=== PATIENT | female | born 1990 | race Caucasian/White ===

== ENCOUNTER 2024-02-12 16:41 | Inpatient (IN) ==
[2024-02-12] MEDS: METOPROLOL TARTRATE 1 MG/ML VIAL IV STA (17:19)
--- NOTE | 2024-02-12 17:21 | Emergency Department Note ---
Impression & Plan Atrial fibrillation with rapid ventricular response, CHF (congestive heart failure), Hyperthyroidism ED Provider Note NAME: SORAYA BERNSTEIN AGE: 33 SEX: Female INFORMANT: Patient and mother ED PROVIDER(S): Greg Lucio MD CHIEF COMPLAINT: A-fib and CHF PLAN: Disposition: Admitted Outpatient prescription management: none Referral: None MEDICAL DECISION MAKING: Patient presented because of direction from the primary clinic. They were concerned with new onset A-fib as well as CHF. Patient has a known history of hyperthyroidism but has not been treated. An IV was established. Patient was found to have A-fib with RVR at 131 bpm. She was given a dose of IV metoprolol 5 mg. Chest imaging, blood work, and urinalysis ordered. Patient has an elevated BNP. This is concerning for CHF in light of her physical findings. She was given the metoprolol and did well with this. Rate control was achieved. Patient was still in A-fib. She was given oral metoprolol. Given the CHF findings she was given IV Lasix and diuresis was started. Patient's history was concerning for the thyroid mass and she does have an undetectable TSH and high T4. Further management will be necessary. [facility] was evaluated in the ER and admitted for further management Care/management discussed with: disease case manager rn Level of care consideration(s): After review of the information above and other included data, I feel the patient requires escalation of care to admission Triage Nursing notes: reviewed and agree them. Vital Signs: reviewed and remarkable for hypertension and tachycardia Additional History obtained from: Patient's mother. She notes that she has chronic right lower leg edema from an old injury but the legs have become significantly more swollen in the recent weeks. Chronic Medical/Social Conditions affecting care: Hyperthyroidism Prior/ Outside/ External records reviewed: [facility]'s office note from today reviewed. She was evaluated for the symptoms noted in the HPI and they were concerned about abnormal labs with anemia, elevated BNP and elevated total bilirubin. Patient was referred to the emergency department for further workup and evaluation Differential Diagnosis: CHF, myocarditis, premature contractions, electrolyte abnormality, cardiac dysrhythmia, thyroid dysfunction, pulmonary embolism, infection, gastrointestinal, as well as other pathologies. Diagnostics, independently interpreted by me: ECG: Twelve-lead ECG reveals atrial fibrillation with rapid ventricular sponsor 131 bpm. Poor R wave progression anteriorly. No ST elevation or depression. Cardiac Monitoring: Cardiac monitoring ordered by me: The patient was placed on continuous cardiac monitoring and observed. It revealed a atrial fibrillation with rapid ventricular response at 115 bpm Medical decision rules: none Imaging studies: Chest x-ray reveals mild cardiomegaly and findings concerning for CHF. HPI: 33 year old Female arrives for evaluation of new onset atrial fibrillation and CHF. This started about a month ago and is noted with increased leg swelling. Patient also notes increased abdominal distention over the last few weeks with weight gain. The patient also notes the following associated symptoms, shortness of breath with exertion, palpitations. Patient has a known history of hypothyroidism. She was previously prescribed methimazole but notes adverse reaction to this and did not complete any additional therapy. The patient has been prescribed no new medications for relieving factors. Current pain is rated as 0/10. Patient states that she was referred to the emergency department due to concerns about new onset CHF and the fact that she was in new onset A-fib with rapid ventricular response. Pt denies LOC, headache, fevers, chills, diaphoresis, visual changes, neck pain, chest pain, nausea, vomiting, abdominal pain, back pain, melena, hematochezia, urinary symptoms, numbness, weakness, lymphadenopathy, rash, or other complaints. PAST MEDICAL HISTORY: See Below, hypothyroidism, PCOS PAST SURGICAL HISTORY: See Below, SOCIAL HISTORY: See Below, non-smoker HOME MEDICATIONS: See Below ALLERGIES: See Below VITALS: See Below PHYSICAL EXAMINATION: GENERAL: Awake, alert, mildly anxious-appearing, in no distress HENT: Normocephalic, atraumatic. Oropharynx unremarkable. EYES: Normal conjunctiva. Sclera non-icteric. NECK: Inspection normal. Non-tender. Supple. No nuchal rigidity. FROM. Large mass in the area of the thyroid palpable. RESPIRATORY: Clear to auscultation. No wheezes. No rales. Normal respiratory effort. CARDIAC: Tachycardic rate. Irregular rhythm. No murmurs. No rubs. Extremities warm and well perfused. Pulses equal. Moderate JVD. GI: Soft, mildly-distended. No tenderness to palpation. No rebound or guarding. No masses. RECTAL: Deferred. MUSCULOSKELETAL: Atraumatic. Chest examination reveals no tenderness. The back is symmetrical on inspection without obvious abnormality. There is no CVA tenderness to palpation. No joint edema. LOWER EXTREMITIES: Calves are equal size bilaterally and non-tender. 2-3+ edema. No discoloration. NEURO: Normal sensorium. No sensory or motor deficits noted. SKIN: No rash or jaundice noted. PROCEDURES: none CRITICAL CARE: I have personally spent 30 minutes of critical care time in the direct management of this patient. This includes bedside care, interpretation of diagnostic studies, and testing, discussion with consultants, patient, and family members, and other required patient management activities. These minutes are in excess of all separately billable procedures. OBSERVATION NOTE: none Past Med/Surg History Problem List (Updated 02/12/24 @ 20:08 by Lupe Goldstein PA-C) Thyrotoxicosis with thyroid storm Hyperthyroidism (Acute) CHF (congestive heart failure) (Acute) Atrial fibrillation with rapid ventricular response (Acute) Chronic sinusitis (Acute) Polycystic ovarian syndrome (Acute) Uterine contractions at greater than 20 weeks of gestation (Acute) Vaginal delivery (Acute 03/17/12) Encounter for pre-operative examination Decreased movement in in third trimester, antepartum (Acute) Pain, dental (Acute) Medical History Hyperthyroidism Sciatic nerve pain Anemia "SLIGHTLY" Sinus infection CHRONIC Surgical History H/O sinus surgery H/O nasal septoplasty History of ankle surgery History of tooth extraction History of bilateral tubal ligation History of appendectomy Family History Grandmother (Paternal) Diabetes Unknown Adverse effect of anesthesia Denies family history of Clotting disorder Social History Smoking Status: Never smoker Second Hand Exposure: No; Do You Dip or Chew Tobacco: No; Hx Alcohol Use: No Hx Substance Use: No Preferred Language: Maltese Communication Ability: Effective Engineering Designer Required: No Beliefs That Will Affect Care: None Current Living Situation: Family and Significant Other Other Information That Helps Us Care for You: No Feels Safe at Home: Yes Safety Concerns: Feels Safe At This Time Assistive Devices: Contacts Allergies Allergies Allergy/AdvReac Type Severity Reaction Status Date / Time No Known Drug Allergies Allergy Verified 05/06/19 13:15 methimazole AdvReac Severe agitation Verified 02/12/24 19:44 Home Meds Home Medications Medication Instructions Recorded Confirmed No Known Home Medications 02/12/24 02/12/24 Results & Data (ED) Vital Signs Vital Signs - 24 hr 02/12/24 16:44 02/12/24 17:05 02/12/24 17:19 Temperature 36.8 C Temperature Source Temporal Artery Scan Pulse Rate 138 H 118 H Pulse Rate [Apical] Pulse Rhythm Regular Pulse Strength Normal Respiratory Rate 20 Respiratory Effort / Characteristics Non-Labored Spontaneous Non-Labored Spontaneous Respiratory Depth Normal Normal Respiratory Pattern Regular Blood Pressure 142/82 H 134/92 Blood Pressure [Right Arm] Blood Pressure Mean 102 Blood Pressure Mean [Right Arm] Blood Pressure Position [Right Arm] Pulse Oximetry 97 Oxygen Delivery Method Room Air Room Air Sepsis Recent Fever Within 48 Hours No Sepsis New/Unexplained Change in Mental Status N/A Sepsis Action Taken by Nursing No Action Required 02/12/24 17:24 02/12/24 17:24 02/12/24 17:46 Temperature Temperature Source Pulse Rate Pulse Rate [Apical] 99 H 98 H Pulse Rhythm Pulse Strength Respiratory Rate 18 18 Respiratory Effort / Characteristics Non-Labored Spontaneous Non-Labored Spontaneous Respiratory Depth Normal Normal Respiratory Pattern Blood Pressure Blood Pressure [Right Arm] 134/92 133/94 Blood Pressure Mean Blood Pressure Mean [Right Arm] 106 107 Blood Pressure Position [Right Arm] Sitting Sitting Pulse Oximetry 96 95 Oxygen Delivery Method Room Air Room Air Room Air Sepsis Recent Fever Within 48 Hours Sepsis New/Unexplained Change in Mental Status Sepsis Action Taken by Nursing Laboratory Data 02/12/24 17:00 02/12/24 18:02 Lab Results 02/12/24 02/12/24 02/12/24 Range/Units 17:00 18:02 18:03 WBC 4.76 L (4.8-10.8) K/ul RBC 4.09 L (4.20-5.40) M/uL Hgb 10.7 L (12.0-16.0) g/dl Hct 32.1 L (37.0-47.0) % MCV 78.5 L (80.0-100.0) fL MCH 26.2 (25.0-34.0) pg MCHC 33.3 (32.0-36.0) g/dL RDW Std Deviation 45.1 (36.4-46.3) fL RDW Coeff of Riccardo 16.0 H (11.5-14.5) % Plt Count 202 (130-400) K/uL MPV 11.1 (9.4-12.4) fL Immature Gran % (Auto) 0.2 % Neut % (Auto) 49.6 % Lymph % (Auto) 34.5 % [place] % (Auto) 14.7 % Eos % (Auto) 0.6 % Baso % (Auto) 0.4 % Neut # (Auto) 2.36 (1.40-6.50) K/uL Lymph # (Auto) 1.64 (1.20-3.40) K/uL [place] # (Auto) 0.70 H (0.11-0.59) K/uL Eos # (Auto) 0.03 (0.00-0.50) K/uL Baso # (Auto) 0.02 (0.00-0.20) K/uL Immature Gran # (Auto) 0.01 (0.01-0.20) K/uL Sodium 136 (136-145) mmol/L Potassium TNP 4.0 Chloride 107 (98-107) mmol/L Carbon Dioxide 23 (21-32) mmol/L Anion Gap 6 (3-11) BUN 11 (6-23) mg/dl Creatinine 0.23 L (0.6-1.2) mg/dl Est Cr Clr Drug Dosing 386.6 ml/min Est GFR ( Amer) > 150.0 ml/min Est GFR (Non-Af Amer) > 150.0 ml/min BUN/Creatinine Ratio 47.8 H (10-20) Glucose 113 H (70-99(Fasting)) mg/dl Calcium 9.2 (8.6-10.3) mg/dl Magnesium 1.7 (1.7-2.4) mg/dl Total Bilirubin 2.1 H (0.2-1.0) mg/dl AST TNP 29 ALT 19 (7-52) U/L Alkaline Phosphatase 181 H (34-104) U/L Troponin I High Sens 6.6 (0-14) pg/ml B-Natriuretic Peptide 470 H (0-100) pg/ml Total Protein 7.2 (6.0-8.3) gm/dl Albumin 3.4 (3.4-5.0) gm/dl Globulin 3.8 (2.5-4.0) gm/dl Albumin/Globulin Ratio 0.9 (0.9-2) TSH < 0.010 L (0.300-4.500) uIu/ml Free T4 5.54 H (0.61-1.60) ng/dl HCG, Quant 3 mIU/ml Urine Color Urine Appearance (Clear) Urine pH (4.5-7.5) Ur Specific [place] (1.000-1.030) Urine Protein (Negative) Urine Glucose (UA) (Negative) Urine Ketones (Negative) Urine Blood (Negative) Urine Nitrite (Negative) Urine Bilirubin (Negative) Urine Urobilinogen (Negative) Ur Leukocyte Esterase (Negative) Urine WBC (Auto) (0-5) /hpf Urine RBC (Auto) (0-2) /hpf U Hyaline Cast (Auto) (0-2) /lpf U Epithel Cells (Auto) (0-2) /hpf Urine Bacteria (Auto) (None Seen) Lyme Disease Screen Negative (Negative) 02/12/24 Range/Units 18:27 WBC (4.8-10.8) K/ul RBC (4.20-5.40) M/uL Hgb (12.0-16.0) g/dl Hct (37.0-47.0) % MCV (80.0-100.0) fL MCH (25.0-34.0) pg MCHC (32.0-36.0) g/dL RDW Std Deviation (36.4-46.3) fL RDW Coeff of Riccardo (11.5-14.5) % Plt Count (130-400) K/uL MPV (9.4-12.4) fL Immature Gran % (Auto) % Neut % (Auto) % Lymph % (Auto) % [place] % (Auto) % Eos % (Auto) % Baso % (Auto) % Neut # (Auto) (1.40-6.50) K/uL Lymph # (Auto) (1.20-3.40) K/uL [place] # (Auto) (0.11-0.59) K/uL Eos # (Auto) (0.00-0.50) K/uL Baso # (Auto) (0.00-0.20) K/uL Immature Gran # (Auto) (0.01-0.20) K/uL Sodium (136-145) mmol/L Potassium Chloride (98-107) mmol/L Carbon Dioxide (21-32) mmol/L Anion Gap (3-11) BUN (6-23) mg/dl Creatinine (0.6-1.2) mg/dl Est Cr Clr Drug Dosing ml/min Est GFR ( Amer) ml/min Est GFR (Non-Af Amer) ml/min BUN/Creatinine Ratio (10-20) Glucose (70-99(Fasting)) mg/dl Calcium (8.6-10.3) mg/dl Magnesium (1.7-2.4) mg/dl Total Bilirubin (0.2-1.0) mg/dl AST ALT (7-52) U/L Alkaline Phosphatase (34-104) U/L Troponin I High Sens (0-14) pg/ml B-Natriuretic Peptide (0-100) pg/ml Total Protein (6.0-8.3) gm/dl Albumin (3.4-5.0) gm/dl Globulin (2.5-4.0) gm/dl Albumin/Globulin Ratio (0.9-2) TSH (0.300-4.500) uIu/ml Free T4 (0.61-1.60) ng/dl HCG, Quant mIU/ml Urine Color Yellow Urine Appearance Clear (Clear) Urine pH 6.0 (4.5-7.5) Ur Specific [place] 1.012 (1.000-1.030) Urine Protein Trace H (Negative) Urine Glucose (UA) Negative (Negative) Urine Ketones Negative (Negative) Urine Blood 2+ H (Negative) Urine Nitrite Negative (Negative) Urine Bilirubin Negative (Negative) Urine Urobilinogen Positive H (Negative) Ur Leukocyte Esterase Trace H (Negative) Urine WBC (Auto) 6-10 H (0-5) /hpf Urine RBC (Auto) 3-5 H (0-2) /hpf U Hyaline Cast (Auto) 3-5 H (0-2) /lpf U Epithel Cells (Auto) 3-5 H (0-2) /hpf Urine Bacteria (Auto) None Seen (None Seen) Lyme Disease Screen (Negative) Administered Medications Enoxaparin Sodium (Enoxaparin 80 Mg/0.8 Ml Syr) 80 mg SQ Q12H [facility] Stop: 03/13/24 21:59 Last Admin: 02/12/24 23:05 Dose: 80 mg Documented By: ABDIAZIZ Magnesium Sulfate/Dextrose (Magnesium Sulfate / D5w) 1 gm in 100 mls @ 50 mls/hr IV Q2H [facility] Stop: 02/12/24 23:29 Last Admin: 02/12/24 21:33 Dose: 50 mls/hr Documented By: Infusion: 02/12/24 21:33 Dose: Infused Documented By: Admin: 02/12/24 20:04 Dose: 50 mls/hr Documented By: LESA Propylthiouracil (Propylthiouracil 50 Mg Tab) 250 mg PO Q4H [facility] Stop: 03/14/24 00:00 Last Admin: 02/12/24 23:06 Dose: 250 mg Documented By: ABDIAZIZ Discontinued Medications Furosemide (Furosemide Inj 20 Mg/2 Ml Vial) 20 mg IV ONE ONE Stop: 02/12/24 17:55 Last Admin: 02/12/24 18:04 Dose: 20 mg Documented By: JAZIEL Hydrocortisone Sodium Succinate (Hydrocortisone Sod Succinate 100 Mg/2 Ml Vial) 100 mg IV NOW STA Stop: 02/12/24 20:13 Last Admin: 02/12/24 20:48 Dose: 100 mg Documented By: LESA Metoprolol Tartrate (Metoprolol Tartrate 1 Mg/Ml Vial) 5 mg IV NOW STA Stop: 02/12/24 17:06 Last Admin: 02/12/24 17:19 Dose: 5 mg Documented By: HRODA Metoprolol Tartrate (Metoprolol Tartrate 25 Mg Tab) 25 mg PO NOW STA Stop: 02/12/24 17:55 Last Admin: 02/12/24 18:04 Dose: 25 mg Documented By: JAZIEL Metoprolol Tartrate (Metoprolol Tartrate 25 Mg Tab) 12.5 mg PO NOW STA Stop: 02/12/24 23:02 Last Admin: 02/12/24 23:18 Dose: 12.5 mg Documented By: ABDIAZIZ Propylthiouracil (Propylthiouracil 50 Mg Tab) 250 mg PO NOW STA Stop: 02/12/24 19:51 Last Admin: 02/12/24 20:46 Dose: 250 mg Documented By: TJS Imaging Data Radiologist's Impression: Chest X-Ray 02/12/24 17:06 XR chest 1V portable HISTORY: 33 years-old Female Dysrhythmia COMPARISON: None TECHNIQUE: AP view the chest FINDINGS: Cardiac silhouette is enlarged. Small right pleural effusion with minimal right basilar opacities likely representing atelectasis. No pneumothorax. Pulmonary vascular congestion. The bones appear grossly intact. IMPRESSION: 1. Cardiomegaly with pulmonary vascular congestion. 2. Small right pleural effusion. ACT 112: Negative or not required by law. The above report was generated using voice recognition software. It may contain grammatical, syntax or spelling errors. Electronically signed by: Vahe Barnhart M.D. 02/12/2024 5:59 PM Discharge Plan Visit Data Chief Complaint: Arrhythmia/Palpitations Stated Complaint: HEART FAILURE, DOC REF, ADMIT ED Provider: Greg Lucio Discharge Problem: Atrial fibrillation with rapid ventricular response, CHF (congestive heart failure), Hyperthyroidism Patient Disposition: Admitted As Inpatient Discharge Instructions Interventions: ED Discharge Assessment Last Done: 02/12/24 20:18
[2024-02-12 17:22] LABS: Basophils # (auto) 0.02 K/uL (0.00-0.20); Basophils % (auto) 0.4 %; Eosinophils # (auto) 0.03 K/uL (0.00-0.50); Eosinophils % (auto) 0.6 %; Hematocrit (blood only) 32.1 % (37.0-47.0); Hemoglobin 10.7 g/dl (12.0-16.0); Immature Granulocytes # (auto) 0.01 K/uL (0.01-0.20); Immature Granulocytes % (auto) 0.2 %; Lymphocytes # (auto) 1.64 K/uL (1.20-3.40); Lymphocytes % (auto) 34.5 %; Mean Corpuscular Hemoglobin 26.2 pg (25.0-34.0); Mean Corpuscular Hgb Conc 33.3 g/dL (32.0-36.0); Mean Corpuscular Volume 78.5 fL (80.0-100.0); Mean Platelet Volume 11.1 fL (9.4-12.4); Monocytes % (auto) 14.7 %; Neutrophils # (auto) 2.36 K/uL (1.40-6.50); Neutrophils % (auto) 49.6 %; Platelet Count 202 K/uL (130-400); RDW Standard Deviation 45.1 fL (36.4-46.3); Red Blood Count 4.09 M/uL (4.20-5.40); White Blood Count 4.76 K/ul (4.8-10.8)
[2024-02-12 17:50] LABS: Alanine Aminotransferase 19 U/L (7-52); Albumin Globulin Ratio 0.9 (0.9-2); Albumin Level 3.4 gm/dl (3.4-5.0); Alkaline Phosphatase 181 U/L (34-104); Anion Gap 6 (3-11); BUN Creatinine Ratio 47.8 (10-20); Bilirubin,Total 2.1 mg/dl (0.2-1.0); Blood Urea Nitrogen 11 mg/dl (6-23); Calcium 9.2 mg/dl (8.6-10.3); Carbon Dioxide 23 mmol/L (21-32); Chloride 107 mmol/L (98-107); Creatinine Clr Calc Pharmacy 386.6 ml/min; Est GFR (African American) > 150.0 ml/min; Est GFR (Non-African American) > 150.0 ml/min; Globulin 3.8 gm/dl (2.5-4.0); Glucose 113 mg/dl (70-99(Fasting)); Magnesium 1.7 mg/dl (1.7-2.4); Sodium 136 mmol/L (136-145); Total Protein 7.2 gm/dl (6.0-8.3)
[2024-02-12 17:53] LABS: Troponin I High Sensitivity 6.6 pg/ml (0-14)
--- NOTE | 2024-02-12 18:01 | XRay Report ---
XR chest 1V portable HISTORY: 33 years-old Female Dysrhythmia COMPARISON: None TECHNIQUE: AP view the chest FINDINGS: Cardiac silhouette is enlarged. Small right pleural effusion with minimal right basilar opacities lik tavia representing atelectasis. No pneumothorax. Pulmonary vascular congestion. The bones appear grossl y intact. IMPRESSION: 1. Cardiomegaly with pulmonary vascular congestion. 2. Small right pleural effusion. ACT 112: Negative or not required by law. The above report was generated using voice recognition software. It may contain grammatical, syntax o r spelling errors. Electronically signed by: Vahe Barnhart M.D. 02/12/2024 5:59 PM
[2024-02-12 18:03] LABS: Thyroid Stimulating Hormone < 0.010 uIu/ml (0.300-4.500)
[2024-02-12] MEDS: METOPROLOL TARTRATE 25 MG TAB PO STA ×2 (18:04→23:18)
[2024-02-12] MEDS: FUROSEMIDE INJ 20 MG/2 ML VIAL IV ONE (18:04)
[2024-02-12 19:01] LABS: T4 Free Thyroxine 5.54 ng/dl (0.61-1.60)
[2024-02-12 19:10] LABS: Appearance Urine Clear (Clear); Bacteria Urine Automated None Seen (None Seen); Bilirubin Urine Negative (Negative); Blood Urine 2+ (Negative); Color Urine Yellow; Glucose Urine UA Negative (Negative); Ketones Urine Negative (Negative); Leukocyte Esterase Urine Trace (Negative); Nitrite Urine Negative (Negative); Protein Urine Trace (Negative); Specific Gravity Urine 1.012 (1.000-1.030); Urobilinogen Urine Positive (Negative)
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
[2024-02-12] MEDS: MAGNESIUM SULFATE / D5W 1 GM/100 ML BAG IV SCH (20:04)
[2024-02-12] MEDS: propylthiouraciL 50 MG TAB PO STA (20:46)
[2024-02-12] MEDS: HYDROCORTISONE SOD SUCCINATE 100 MG/2 ML VIAL IV STA (20:48)
[2024-02-12] MEDS ORDERED: POLYETHYLENE (MIRALAX) 17 GM PACK PO PRN (21:58)
[2024-02-12] MEDS ORDERED: MAGNESIUM HYDROXIDE SUSP 30 ML UDC PO PRN (21:58)
[2024-02-12] MEDS ORDERED: ONDANSETRON INJ 2 MG/ML 2 ML VIAL IV PRN (21:58)
[2024-02-12] MEDS ORDERED: ALUMINUM/MAGNESIUM SUSP 30 ML UDC PO PRN (21:58)
--- NOTE | 2024-02-12 21:59 | Ultrasound Report ---
Exam(s): US THYROID EXAM: US Soft Tissues Head and Neck, Thyroid CLINICAL HISTORY: Reason for exam: goiter. TECHNIQUE: Real-time ultrasound scan of the thyroid gland and soft tissues of the neck with image documentation. COMPARISON: No relevant prior studies available. FINDINGS: Left thyroid lobe: Left lobe of the thyroid gland measures 7.2 cm in length. There is heterogeneous thyroid echogenicity. No enlarged or calcified nodules. Right thyroid lobe: Right lobe of the thyroid gland measures 7.6 cm in length. There is heterogeneous thyroid echogenicity. No enlarged or calcified nodules. Isthmus: Heterogeneous echogenicity. No enlarged or calcified nodules. There is increased vascularity seen throughout the thyroid gland. IMPRESSION: Bilateral thyroid heterogeneity, and hypervascularity, suggestive of thyroiditis. Electronically signed by: Gary Liao MD 02/12/24 21:58 PM
[2024-02-12] MEDS: ENOXAPARIN 80 MG/0.8 ML SYR SQ SCH (23:05)
[2024-02-12] MEDS: propylthiouraciL 50 MG TAB PO SCH (23:06)
[2024-02-13] MEDS: HYDROCORTISONE SOD 100 MG in SYRINGE 0 ML IV SCH (05:13)
[2024-02-13] MEDS ORDERED: HYDROCORTISONE SOD SUCCINATE 100 MG/2 ML VIAL IV SCH (06:00)
[2024-02-13 07:12] LABS: Basophils # (auto) 0.01 K/uL (0.00-0.20); Basophils % (auto) 0.2 %; Hematocrit (blood only) 32.5 % (37.0-47.0); Hemoglobin 10.6 g/dl (12.0-16.0); Immature Granulocytes # (auto) 0.01 K/uL (0.01-0.20); Immature Granulocytes % (auto) 0.2 %; Lymphocytes # (auto) 1.39 K/uL (1.20-3.40); Lymphocytes % (auto) 33.3 %; Mean Corpuscular Hemoglobin 25.9 pg (25.0-34.0); Mean Corpuscular Hgb Conc 32.6 g/dL (32.0-36.0); Mean Corpuscular Volume 79.3 fL (80.0-100.0); Mean Platelet Volume 9.8 fL (9.4-12.4); Monocytes # (auto) 0.43 K/uL (0.11-0.59); Monocytes % (auto) 10.3 %; Neutrophils # (auto) 2.33 K/uL (1.40-6.50); Platelet Count 151 K/uL (130-400); RDW Coefficient of Variation 15.9 % (11.5-14.5); RDW Standard Deviation 45.3 fL (36.4-46.3); White Blood Count 4.17 K/ul (4.8-10.8)
[2024-02-13 07:16] LABS: Estimated Average Glucose 103 mg/dl; Hemoglobin A1C 5.2 % (4.5-5.6)
[2024-02-13 07:31] LABS: Alanine Aminotransferase 18 U/L (7-52); Albumin Globulin Ratio 0.9 (0.9-2); Albumin Level 3.4 gm/dl (3.4-5.0); Alkaline Phosphatase 182 U/L (34-104); Anion Gap 6 (3-11); Aspartate Aminotransferase 26 U/L (13-39); BUN Creatinine Ratio 51.9 (10-20); Bilirubin,Total 2.4 mg/dl (0.2-1.0); Blood Urea Nitrogen 14 mg/dl (6-23); Calcium 9.2 mg/dl (8.6-10.3); Carbon Dioxide 25 mmol/L (21-32); Chloride 104 mmol/L (98-107); Creatinine Clr Calc Pharmacy 327.5 ml/min; Est GFR (African American) > 150.0 ml/min; Est GFR (Non-African American) > 150.0 ml/min; Globulin 3.7 gm/dl (2.5-4.0); Glucose 122 mg/dl (70-99(Fasting)); Iron 36 mcg/dl (35-150); Magnesium 1.9 mg/dl (1.7-2.4); Potassium 3.9 mmol/L (3.5-5.1); Sodium 135 mmol/L (136-145); Total Iron Binding Cap Calc 275 mcg/dl (250-450); Total Protein 7.1 gm/dl (6.0-8.3); Transferrin 210 mg/dl (200-360); Transferrin (FE) Percent Satur 13 % (15-50); Unsaturated Iron Binding Cap 239 mcg/dl (155-355)
[2024-02-13 07:49] LABS: Folate (Folic Acid),Ser orPlas > 22.30 ng/ml (>5.38)
[2024-02-13 07:50] LABS: Vitamin B12 474 pg/ml (180-914)
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
[2024-02-13 07:51] LABS: Ferritin 22.2 ng/ml (8-388)
[2024-02-13] MEDS: METOPROLOL TARTRATE 25 MG TAB PO SCH ×2 (08:21→08:30)
[2024-02-13] MEDS: ACETAMINOPHEN 325 MG TAB PO PRN (08:31)
[2024-02-13] MEDS: FUROSEMIDE 40 MG/4 ML VIAL IV SCH (08:31)
[2024-02-13] MEDS: POTASSIUM CHLORIDE CRTAB 20 MEQ TABCR PO SCH (08:31)
[2024-02-13] MEDS: POTASSIUM CHLORIDE 20 MEQ/15 ML UDC PO ONE (10:12)
--- NOTE | 2024-02-13 10:23 | Electrocardiogram Report ---
Test Reason : Blood Pressure : / mmHG Vent. Rate : 131 BPM Atrial Rate : 000 BPM P-R Int : 000 ms QRS Dur : 074 ms QT Int : 314 ms P-R-T Axes : 000 066 048 degrees QTc Int : 463 ms Atrial fibrillation with rapid ventricular response Abnormal ECG No previous ECGs available Confirmed by Martin Green ([id number]) on 02/13/2024 10:23:36 AM Referred By: Daryn Houston Confirmed By:Bernard Green
[2024-02-13] MEDS: PROPRANOLOL HCL 60 MG LA CAP PO ONE (12:39)
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
[2024-02-13] MEDS: propylthiouraciL 50 MG TAB PO SCH (16:49)
--- NOTE | 2024-02-13 16:49 | Ultrasound Report ---
US abdomen ltd ascites CLINICAL HISTORY: abdominal distention TECHNIQUE: Real-time grayscale sonographic images of the abdomen were obtained. Comparison: None available at the time of this dictation. FINDINGS/IMPRESSION: A small amount of fluid is seen most prominently in the right pelvis, less than 300 cc. ACT 112: Negative or not required by law. Electronically signed by: Yandel Vasquez M.D. 02/13/2024 4:48 PM
[2024-02-13] MEDS: APIXABAN 5 MG TABLET PO SCH (21:55)
[2024-02-14 07:52] LABS: Hematocrit (blood only) 31.7 % (37.0-47.0); Hemoglobin 10.5 g/dl (12.0-16.0); Mean Corpuscular Hemoglobin 25.6 pg (25.0-34.0); Mean Corpuscular Hgb Conc 33.1 g/dL (32.0-36.0); Mean Corpuscular Volume 77.3 fL (80.0-100.0); Mean Platelet Volume 10.1 fL (9.4-12.4); Platelet Count 144 K/uL (130-400); RDW Coefficient of Variation 16.2 % (11.5-14.5); RDW Standard Deviation 45.7 fL (36.4-46.3); White Blood Count 4.86 K/ul (4.8-10.8)
[2024-02-14 08:06] LABS: Anion Gap 6 (3-11); Blood Urea Nitrogen 19 mg/dl (6-23); Carbon Dioxide 24 mmol/L (21-32); Chloride 107 mmol/L (98-107); Potassium 3.7 mmol/L (3.5-5.1); Sodium 137 mmol/L (136-145)
[2024-02-14 08:07] LABS: Alanine Aminotransferase 18 U/L (7-52); Albumin Level 3.5 gm/dl (3.4-5.0); Alkaline Phosphatase 167 U/L (34-104); Aspartate Aminotransferase 22 U/L (13-39); Bilirubin Direct 1.1 mg/dl (0-0.2); Bilirubin,Total 2.1 mg/dl (0.2-1.0); Calcium 9.3 mg/dl (8.6-10.3); Creatinine Clr Calc Pharmacy 355.7 ml/min; Est GFR (African American) > 150.0 ml/min; Est GFR (Non-African American) > 150.0 ml/min; Glucose 136 mg/dl (70-99(Fasting)); Magnesium 1.8 mg/dl (1.7-2.4); Total Protein 7.1 gm/dl (6.0-8.3)
[2024-02-14] MEDS: FERROUS SULFATE 325 MG TAB PO SCH (09:09)
[2024-02-14] MEDS: PROPRANOLOL HCL 60 MG LA CAP PO SCH (09:11)
--- NOTE | 2024-02-14 10:49 | Electrocardiogram Report ---
Test Reason : Blood Pressure : / mmHG Vent. Rate : 082 BPM Atrial Rate : 178 BPM P-R Int : 000 ms QRS Dur : 082 ms QT Int : 434 ms P-R-T Axes : 000 058 035 degrees QTc Int : 507 ms Atrial fibrillation Abnormal ECG When compared with ECG of 12-FEB-2024 16:55, Vent. rate has decreased BY 49 BPM Nonspecific T wave abnormality, worse in Inferior leads Confirmed by Nick Godfrey ([id number]) on 02/14/2024 10:49:06 AM Referred By: Daryn Houston Confirmed By:Nick Godfrey
[2024-02-14] MEDS: HYDROCORTISONE SOD 50 MG in SYRINGE 0 ML IV SCH (13:32)
--- NOTE | 2024-02-14 14:18 | Cardiology Progress Note ---
<Statement entered by Tessie Riojas, - 02/14/24 14:58> I have reviewed the advanced practitioner's documentation and agree with the plan of care. I accept the responsibility for the associated risk. Pt seen in cardiology f/u due to AF in the setting of hyperthyroidism Her ventricular rates are controlled running in the 80s to low 100s She is feeling ok from a cardiac perspective Ok to continue the propranolol for rate control upon discharge Recommend eliquis 5mg BID for CVA prevention She will follow up with endocrinology as a out patient to discuss procedural options She will need to follow up with cardiology as well upon discharge Ok for discharge from a cardiac perspective but in speaking with hospitalist he wants to ensure the dose of steroids is ok prior to discharge so most likely discharge tomorrow I discussed my recommendations with the hospitalist over the phone and he agreed with my plan Date of Service February 14, 2024 Assessment & Plan (1) Thyrotoxicosis with thyroid storm: (2) Hyperthyroidism: (3) Atrial fibrillation with rapid ventricular response: Plan - currently admitted for thyrotoxicosis due to inability to tolerate methimazole - also found to be in AFib RVR - tolerating propranolol 120 ER daily with adequate heart rate control - as thyroid levels improve heart rates should also continue to improve - recommend therapeutic anticoagulation for thromboembolic event protection which was also discussed with the patient recommend apixaban 5 mg twice per day - will defer medication recommendations in regard to hyperthyroidism to attending service and Endocrinology - case discussed with the attending service Case discussed with Dr. Riojas. Please see attestation for additional recommendations. HARMEET Mortensen Department of Cardiology, [facility] This chart was completed in part utilizing Speech Voice Recognition Software. Grammatical errors, random word insertions, pronoun errors, and incomplete sentences are an occasional consequence of this system due to software limitations, ambient noise, and hardware issues. Any formal questions or concerns about the content, text, or information contained within the body of this dictation should be directly addressed to the provider for clarification. Admission and Anticipated Discharge Date Admission Date: February 12, 2024 Subjective 33-year-old female seen in cardiology follow up in regard to atrial fibrillation in the setting of thyrotoxicosis. She was transitioned to extended-release propranolol yesterday and heart rates are much better controlled. She reports feeling significantly better than presentation. Denies chest pain, SOB, palpitations, dizziness, syncope, edema, orthopnea and PND. Review of Systems Constitutional: no fever and no chills Respiratory: no cough, no chest congestion and no dyspnea Cardiovascular: no chest pain, no palpitations, no lightheadedness and no syncope Gastrointestinal: no abdominal pain, no nausea and no vomiting Integumentary: no rash and no lesions Physical Exam Constitutional: WD/WN, vitals as above well developed and well nourished; no acute distress Respiratory: normal respiratory effort, lungs clear to auscultation Cardiovascular: Rate/Rhythm: regular rate and + irregularly irregular Heart Sounds: no murmur Vessels: no JVD and no carotid bruit Gastrointestinal (Abdomen): normal bowel sounds, soft, nontender, no hepatosplenomegaly Musculoskeletal: no cyanosis or clubbing, extremities motor strength 5/5 Skin: no rashes, warm and dry Psychiatric: A+Ox3, euthymic affect Results & Data Vital Signs (Past 12 Hours) Vital Signs Temp Pulse Pulse Resp BP Pulse Ox O2 Del Method 02/14/24 11:00 36.5 C 92 H 17 130/76 95 Room Air 02/14/24 07:35 36.5 C 92 H 16 133/90 93 Room Air 02/14/24 03:00 36.6 C 80 19 146/71 H 95 Room Air Laboratory Results Cardiac Enzymes 02/14/24 Range/Units 07:27 AST 22 (13-39) U/L CBC 02/14/24 Range/Units 07:27 WBC 4.86 (4.8-10.8) K/ul RBC 4.10 L (4.20-5.40) M/uL Hgb 10.5 L (12.0-16.0) g/dl Hct 31.7 L (37.0-47.0) % Plt Count 144 (130-400) K/uL Comprehensive Metabolic Panel 02/14/24 Range/Units 07:27 Sodium 137 (136-145) mmol/L Potassium 3.7 (3.5-5.1) mmol/L Chloride 107 (98-107) mmol/L Carbon Dioxide 24 (21-32) mmol/L BUN 19 (6-23) mg/dl Creatinine 0.25 L (0.6-1.2) mg/dl Glucose 136 H (70-99(Fasting)) mg/dl Calcium 9.3 (8.6-10.3) mg/dl Direct Bilirubin 1.1 H (0-0.2) mg/dl AST 22 (13-39) U/L ALT 18 (7-52) U/L Alkaline Phosphatase 167 H (34-104) U/L Total Protein 7.1 (6.0-8.3) gm/dl Albumin 3.5 (3.4-5.0) gm/dl Intake and Output 02/13/24 02/14/24 02/14/24 22:59 06:59 14:59 Output Total 200 / 200 600 / 600 Balance -200 / -200 -600 / -600 Output: Urine 200 / 200 600 / 600 Other: Weight 83.5 kg Weight Measurement Method Standing Scale Diagnostic Findings Current Inpatient Medications Acetaminophen (Acetaminophen 325 Mg Tab) 650 mg PO Q4H PRN PRN Reason: Pain or Fever Stop: 03/13/24 21:57 Last Admin: 02/14/24 09:58 Dose: 650 mg Al Hydrox/Mg Hydrox/Simethicone (Aluminum/Magnesium Susp 30 Ml Udc) 15 ml PO Q4H PRN PRN Reason: Dyspepsia Stop: 03/13/24 21:57 Apixaban (Apixaban 5 Mg Tablet) 5 mg PO BID [facility] Stop: 03/14/24 20:59 Last Admin: 02/14/24 09:09 Dose: 5 mg Ferrous Sulfate (Ferrous Sulfate 325 Mg Tab) 325 mg PO QAM [facility] Stop: 03/15/24 08:59 Last Admin: 02/14/24 09:09 Dose: 325 mg Furosemide (Furosemide 40 Mg/4 Ml Vial) 40 mg IV DAILY [facility] Stop: 03/14/24 08:59 Last Admin: 02/14/24 09:11 Dose: 40 mg Hydrocortisone Sodium (Succinate 50 mg/ Syringe) 1 mls @ 4 mls/min IV Q8H [facility] Stop: 03/14/24 12:59 Last Admin: 02/14/24 13:32 Dose: 4 mls/min Magnesium Hydroxide (Magnesium Hydroxide Susp 30 Ml Udc) 30 ml PO Q12H PRN PRN Reason: Constipation Stop: 03/13/24 21:57 Ondansetron HCl (Ondansetron Inj 2 Mg/Ml 2 Ml Vial) 4 mg IV Q6H PRN PRN Reason: Nausea Stop: 03/13/24 21:57 Polyethylene Glycol (Polyethylene (Miralax) 17 Gm Pack) 17 gm PO DAILY PRN PRN Reason: Constipation Stop: 03/13/24 21:57 Propranolol HCl (Propranolol Hcl 60 Mg [place]) 120 mg PO QAM [facility] Stop: 03/15/24 08:59 Last Admin: 02/14/24 09:11 Dose: 120 mg Propylthiouracil (Propylthiouracil 50 Mg Tab) 200 mg PO QID [facility] Stop: 03/14/24 16:59 Last Admin: 02/14/24 13:32 Dose: 200 mg Laboratory Results WBC 4.86 K/ul (4.8-10.8) 02/14/24 07:27 RBC 4.10 M/uL (4.20-5.40) L 02/14/24 07:27 Hgb 10.5 g/dl (12.0-16.0) L 02/14/24 07:27 Hct 31.7 % (37.0-47.0) L 02/14/24 07:27 MCV 77.3 fL (80.0-100.0) L 02/14/24 07:27 MCH 25.6 pg (25.0-34.0) 02/14/24 07:27 MCHC 33.1 g/dL (32.0-36.0) 02/14/24 07:27 RDW Std Deviation 45.7 fL (36.4-46.3) 02/14/24 07:27 RDW Coeff of Riccardo 16.2 % (11.5-14.5) H 02/14/24 07:27 Plt Count 144 K/uL (130-400) 02/14/24 07:27 MPV 10.1 fL (9.4-12.4) 02/14/24 07:27 Immature Gran % (Auto) 0.2 % 02/13/24 06:12 Neut % (Auto) 56.0 % 02/13/24 06:12 Lymph % (Auto) 33.3 % 02/13/24 06:12 [place] % (Auto) 10.3 % 02/13/24 06:12 Eos % (Auto) 0.0 % 02/13/24 06:12 Baso % (Auto) 0.2 % 02/13/24 06:12 Neut # (Auto) 2.33 K/uL (1.40-6.50) 02/13/24 06:12 Lymph # (Auto) 1.39 K/uL (1.20-3.40) 02/13/24 06:12 [place] # (Auto) 0.43 K/uL (0.11-0.59) 02/13/24 06:12 Eos # (Auto) 0.00 K/uL (0.00-0.50) 02/13/24 06:12 Baso # (Auto) 0.01 K/uL (0.00-0.20) 02/13/24 06:12 Immature Gran # (Auto) 0.01 K/uL (0.01-0.20) 02/13/24 06:12 Sodium 137 mmol/L (136-145) 02/14/24 07:27 Potassium 3.7 mmol/L (3.5-5.1) 02/14/24 07:27 Chloride 107 mmol/L (98-107) 02/14/24 07:27 Carbon Dioxide 24 mmol/L (21-32) 02/14/24 07:27 Anion Gap 6 (3-11) 02/14/24 07:27 BUN 19 mg/dl (6-23) 02/14/24 07:27 Creatinine 0.25 mg/dl (0.6-1.2) L 02/14/24 07:27 Est Cr Clr Drug Dosing 355.7 ml/min 02/14/24 07:27 Est GFR ( Amer) > 150.0 ml/min 02/14/24 07:27 Est GFR (Non-Af Amer) > 150.0 ml/min 02/14/24 07:27 BUN/Creatinine Ratio 76.0 (10-20) H 02/14/24 07:27 Glucose 136 mg/dl (70-99(Fasting)) H 02/14/24 07:27 Estimat Average Glucose 103 mg/dl 02/13/24 06:12 Hemoglobin A1c 5.2 % (4.5-5.6) 02/13/24 06:12 Calcium 9.3 mg/dl (8.6-10.3) 02/14/24 07:27 Magnesium 1.8 mg/dl (1.7-2.4) 02/14/24 07:27 Iron 36 mcg/dl (35-150) 02/13/24 06:12 TIBC 275 mcg/dl (250-450) 02/13/24 06:12 Unsaturated IBC 239 mcg/dl (155-355) 02/13/24 06:12 Transferrin 210 mg/dl (200-360) 02/13/24 06:12 Transferrin % Sat 13 % (15-50) L 02/13/24 06:12 Ferritin 22.2 ng/ml (8-388) 02/13/24 06:12 Total Bilirubin 2.1 mg/dl (0.2-1.0) H 02/14/24 07:27 Direct Bilirubin 1.1 mg/dl (0-0.2) H 02/14/24 07:27 AST 22 U/L (13-39) 02/14/24 07:27 ALT 18 U/L (7-52) 02/14/24 07:27 Alkaline Phosphatase 167 U/L (34-104) H 02/14/24 07:27 Troponin I High Sens 6.6 pg/ml (0-14) 02/12/24 17:00 B-Natriuretic Peptide 470 pg/ml (0-100) H 02/12/24 17:00 Total Protein 7.1 gm/dl (6.0-8.3) 02/14/24 07:27 Albumin 3.5 gm/dl (3.4-5.0) 02/14/24 07:27 Globulin 3.7 gm/dl (2.5-4.0) 02/13/24 06:12 Albumin/Globulin Ratio 0.9 (0.9-2) 02/13/24 06:12 Vitamin B12 474 pg/ml (180-914) 02/13/24 06:12 Folate > 22.30 ng/ml (>5.38) 02/13/24 06:12 TSH < 0.010 uIu/ml (0.300-4.500) L 02/12/24 17:00 Free T4 5.54 ng/dl (0.61-1.60) H 02/12/24 17:00 Free T3 3.15 pg/ml (2.3-4.2) 02/14/24 07:27 HCG, Quant 3 mIU/ml 02/12/24 18:03 Urine Color Yellow 02/12/24 18:27 Urine Appearance Clear (Clear) 02/12/24 18: Urine pH 6.0 (4.5-7.5) 02/12/24 18: Ur Specific [place] 1.012 (1.000-1.030) 02/12/24 18:27 Urine Protein Trace (Negative) H 02/12/24 18:27 Urine Glucose (UA) Negative (Negative) 02/12/24 18: Urine Ketones Negative (Negative) 02/12/24 18: Urine Blood 2+ (Negative) H 02/12/24 18: Urine Nitrite Negative (Negative) 02/12/24 18: Urine Bilirubin Negative (Negative) 02/12/24 18: Urine Urobilinogen Positive (Negative) H 02/12/24 18: Ur Leukocyte Esterase Trace (Negative) H 02/12/24 18:27 Urine WBC (Auto) 6-10 /hpf (0-5) H 02/12/24 18: Urine RBC (Auto) 3-5 /hpf (0-2) H 02/12/24 18: U Hyaline Cast (Auto) 3-5 /lpf (0-2) H 02/12/24 18: U Epithel Cells (Auto) 3-5 /hpf (0-2) H 02/12/24 18:27 Urine Bacteria (Auto) None Seen (None Seen) 02/12/24 18: Lyme Disease Screen Negative (Negative) 02/12/24 17:00 Impressions Chest X-Ray 02/12/24 17:06 XR chest 1V portable HISTORY: 33 years-old Female Dysrhythmia COMPARISON: None TECHNIQUE: AP view the chest FINDINGS: Cardiac silhouette is enlarged. Small right pleural effusion with minimal right basilar opacities likely representing atelectasis. No pneumothorax. Pulmonary vascular congestion. The bones appear grossly intact. IMPRESSION: 1. Cardiomegaly with pulmonary vascular congestion. 2. Small right pleural effusion. ACT 112: Negative or not required by law. The above report was generated using voice recognition software. It may contain grammatical, syntax or spelling errors. Electronically signed by: Vahe Barnhart M.D. 02/12/2024 5:59 PM Thyroid Ultrasound 02/12/24 19:35 Exam(s): US THYROID EXAM: US Soft Tissues Head and Neck, Thyroid CLINICAL HISTORY: Reason for exam: goiter. TECHNIQUE: Real-time ultrasound scan of the thyroid gland and soft tissues of the neck with image documentation. COMPARISON: No relevant prior studies available. FINDINGS: Left thyroid lobe: Left lobe of the thyroid gland measures 7.2 cm in length. There is heterogeneous thyroid echogenicity. No enlarged or calcified nodules. Right thyroid lobe: Right lobe of the thyroid gland measures 7.6 cm in length. There is heterogeneous thyroid echogenicity. No enlarged or calcified nodules. Isthmus: Heterogeneous echogenicity. No enlarged or calcified nodules. There is increased vascularity seen throughout the thyroid gland. IMPRESSION: Bilateral thyroid heterogeneity, and hypervascularity, suggestive of thyroiditis. Electronically signed by: Gary Liao MD 02/12/24 21:58 PM Abdomen Ultrasound 02/13/24 12:16 US abdomen ltd ascites CLINICAL HISTORY: abdominal distention TECHNIQUE: Real-time grayscale sonographic images of the abdomen were obtained. Comparison: None available at the time of this dictation. FINDINGS/IMPRESSION: A small amount of fluid is seen most prominently in the right pelvis, less than 300 cc. ACT 112: Negative or not required by law. Electronically signed by: Yandel Vasquez M.D. 02/13/2024 4:48 PM
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
[2024-02-15 06:15] LABS: Hematocrit (blood only) 30.3 % (37.0-47.0); Hemoglobin 10.1 g/dl (12.0-16.0); Mean Corpuscular Hemoglobin 25.7 pg (25.0-34.0); Mean Corpuscular Hgb Conc 33.3 g/dL (32.0-36.0); Mean Corpuscular Volume 77.1 fL (80.0-100.0); Mean Platelet Volume 9.9 fL (9.4-12.4); Platelet Count 138 K/uL (130-400); RDW Standard Deviation 44.5 fL (36.4-46.3); Red Blood Count 3.93 M/uL (4.20-5.40); White Blood Count 5.86 K/ul (4.8-10.8)
[2024-02-15 06:44] LABS: Alanine Aminotransferase 18 U/L (7-52); Albumin Level 3.1 gm/dl (3.4-5.0); Alkaline Phosphatase 137 U/L (34-104); Anion Gap 5 (3-11); Aspartate Aminotransferase 23 U/L (13-39); BUN Creatinine Ratio 69.2 (10-20); Bilirubin Direct 0.8 mg/dl (0-0.2); Bilirubin,Total 1.6 mg/dl (0.2-1.0); Blood Urea Nitrogen 18 mg/dl (6-23); Carbon Dioxide 27 mmol/L (21-32); Chloride 108 mmol/L (98-107); Est GFR (African American) > 150.0 ml/min; Est GFR (Non-African American) > 150.0 ml/min; Glucose 131 mg/dl (70-99(Fasting)); Magnesium 1.8 mg/dl (1.7-2.4); Potassium 3.1 mmol/L (3.5-5.1); Sodium 140 mmol/L (136-145); Total Protein 6.2 gm/dl (6.0-8.3)
[2024-02-15] MEDS: POTASSIUM CHLORIDE CRTAB 20 MEQ TABCR PO ONE (10:04)
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
[2024-02-15] MEDS ORDERED: POTASSIUM CHLORIDE CRTAB 20 MEQ TABCR PO ONE (13:00)
[2024-02-15] MEDS ORDERED: propylthiouraciL 50 MG TAB PO SCH (17:00)
[2024-02-16] MEDS ORDERED: FUROSEMIDE 20 MG TAB PO SCH (09:00)
--- NOTE | 2024-02-16 09:06 | Electrocardiogram Report ---
Test Reason : Blood Pressure : / mmHG Vent. Rate : 076 BPM Atrial Rate : 312 BPM P-R Int : 000 ms QRS Dur : 094 ms QT Int : 450 ms P-R-T Axes : 000 072 -56 degrees QTc Int : 506 ms Atrial fibrillation Nonspecific T wave abnormality Anteroseptal leads Nonspecific T wave abnormality Inferior leads Prolonged QT Abnormal ECG When compared with ECG of 14-FEB-2024 06:03, Confirmed by Trung Hernandez ([id number]) on 02/16/2024 9:06:00 AM Referred By: Daryn Houston Confirmed By:Trung Hernandez
[2024-02-16] MEDS ORDERED: predniSONE 20 MG TAB PO SCH (13:00)
== END 2024-02-15 14:30 | disposition home or self-care (01) | DRG 308 ==
LOC: ED 16:41 → 2S 18:42 → SUATTDRO 18:42 → 2S 20:18